=== PATIENT | female | born 1990 | race African-American/Black ===

== ENCOUNTER 2017-03-06 00:39 | Emergency (ER) | payer OTHER ==
[~2017-03-06] VITALS: Ht 172.7 cm; Wt 56.7 kg
--- NOTE | 2017-03-06 00:50 | NUR ---
TO BED 6 A 27 YO FEMALE PT BIBSELF C/O ON AND OFF HEADACHE X 3 WEEKS. PER PATIEN SHE HAS HX OF MIGRAINE. AAOX4, NAD NOTED. VSS. BREATHING EVEN AND UNLABORED. NONDIAPHORETIC. COMFORT MEASURES RENDERED.
[2017-03-06] MEDS ORDERED: METOCLOPRAMIDE HCL 10 MG/2 ML VIAL IV ONE (01:00)
[2017-03-06] MEDS ORDERED: IV NS 0.9% 1,000 ML BAG IV ONE (01:00)
[2017-03-06] MEDS ORDERED: SUMATRIPTAN SUCCINATE 6 MG/0.5 ML VIAL SQ ONE ×2 (01:00→01:04)
[2017-03-06] MEDS ORDERED: METOCLOPRAMIDE HCL 10 MG/2 ML VIAL ONE (01:04)
[2017-03-06] MEDS ORDERED: diphenhydrAMINE HCL 50 MG/ML VIAL ONE (01:21)
[2017-03-06] MEDS ORDERED: diphenhydrAMINE HCL 50 MG/ML VIAL IV ONE (01:30)
--- NOTE | 2017-03-06 01:35 | NUR ---
STARTED A SALINE LOCK ON THE RAC G20.
--- NOTE | 2017-03-06 01:38 | NUR ---
patient to ct.
--- NOTE | 2017-03-06 02:02 | NUR ---
PATIENT REPORTS THAT SHE IS "FEELING BETTER."
--- NOTE | 2017-03-06 03:20 | NUR ---
Patient discharged to friend for transport home in stable condition. Written and verbal after care instructions given. Patient verbalizes understanding of instruction. IV removed. Catheter intact and site benign. Pressure and 4x4 applied to site. No bleeding noted. Pt ambulatory with a steady gait. VSS, NAD noted on DC. Denies complaint on DC.
[2017-03-06 04:00] VITALS: BP 106/68
== END 2017-03-06 04:43 | disposition home or self-care (01) ==
LOC: ER 00:44
DX: G43.909 Migraine, unspecified, not intractable, without status migrainosus (principal)
CPT/HCPCS: 70450-TC; A4606; J1200; J2765; J3030; J7030; Z7610

== ENCOUNTER 2018-11-19 19:07 | Emergency (ER) | payer OTHER ==
[~2018-11-19] VITALS: Ht 172.7 cm; Wt 65.8 kg
--- NOTE | 2018-11-19 19:20 | NUR ---
PT BIBSELF C/O "POSSIBLE SEIZURE" LAST NIGHT, PT SHOWED VIDEO APPROXIMATELY 15 SEC. PT AXO4. RESPIRATIONS EVEN AND UNLABORED. PT HIT HEAD. PT PUT ON THE BROKERAGE CLERK AND PULSE OX.
--- NOTE | 2018-11-19 19:45 | NUR ---
PT AMBULATORY WITH STEADY GAIT, URINE SAMPLE OBTAINED AND SENT TO LAB.
[2018-11-19] MEDS ORDERED: IV NS 0.9% 1,000 ML BAG IV ONE (20:00)
[2018-11-19 21:16] LABS: APPEARANCE,URINE CLEAR (CLEAR); BILIRUBIN,URINE NEGATIVE (NEGATIVE); BLOOD, URINE 1+ Ery/uL (NEGATIVE); COLOR,URINE YELLOW (YELLOW); KETONES,URINE NEGATIVE (NEGATIVE); LEUKOCYTE ESTERASE ,URINE NEGATIVE (NEGATIVE); NITRITE, URINE NEGATIVE (NEGATIVE); PH,URINE 6.5 (5.0-8.0); PROTEIN,URINE NEGATIVE (NEGATIVE); UGLUCOSE NEGATIVE (NEGATIVE); UROBILINOGEN,URINE 0.2 EU/dL (0.2)
[2018-11-19 21:21] LABS: BACTERIA,URINE None seen /HPF (None Seen); SQUAMOUS EPITHELIAL CELL,UR 0-2 /HPF (None Seen); WBC,URINE 0-2 /HPF (0-3)
[2018-11-19 21:24] LABS: CALCIUM, SERUM 9.2 mg/dL (8.5-10.1); CREATININE 1.1 mg/dL (0.6-1.3); POTASSIUM 3.7 mmol/L (3.5-5.1)
[2018-11-19 22:32] VITALS: BP 118/77
--- NOTE | 2018-11-19 22:32 | NUR ---
Patient discharged to home in stable condition. Written and verbal after care instructions given. Patient verbalizes understanding of instruction.
== END 2018-11-19 22:33 | disposition home or self-care (01) ==
LOC: ER 19:07
DX: R55 Syncope and collapse (principal); E86.0 Dehydration; G43.909 Migraine, unspecified, not intractable, without status migrainosus; Z98.890 Other specified postprocedural states; Z60.2 Problems related to living alone
CPT/HCPCS: 36415; 71045; 80048; 81001; 84703; 93005; 99284; J7030; 81000-TC

== ENCOUNTER 2019-02-11 19:02 | Emergency (ER) | payer OTHER ==
[~2019-02-11] VITALS: Ht 172.7 cm; Wt 63.5 kg
[2019-02-11 19:50] VITALS: BP 116/73
== END 2019-02-11 20:14 | disposition home or self-care (01) ==
LOC: ER 19:02
DX: M67.48 Ganglion, other site (principal); Z98.890 Other specified postprocedural states; Z60.2 Problems related to living alone

== ENCOUNTER 2019-08-26 16:08 | Emergency (ER) | payer OTHER ==
[~2019-08-26] VITALS: Ht 172.7 cm; Wt 65.8 kg
--- NOTE | 2019-08-26 16:42 | NUR ---
PT REC'D TO [facility] C/O BLEDING WEDNESDAY HAD BLOD TEST POSS PREG LABS AND UA OBTAINED
--- NOTE | 2019-08-26 16:52 | NUR ---
pt was bleeding on and off 3 days
[2019-08-26 17:07] LABS: BASOPHILS # (AUTO) 0.1 /CMM (0.0-0.2); BASOPHILS % (AUTO) 0.6 % (0.0-2.0); EOSINOPHILS % (AUTO) 1.2 % (0.0-6.0); HEMATOCRIT 44 % (33-45); HEMOGLOBIN 14.4 g/dL (11.5-14.8); LYMPHOCYTES % (AUTO) 21.3 % (20.0-44.0); MEAN CORPUSCULAR HGB CONC 33 g/dl (31.0-36.0); MEAN CORPUSCULAR VOLUME 93 fL (82-100); MONOCYTES # (AUTO) 1.1 /CMM (0.1-1.30); MONOCYTES % (AUTO) 11.5 % (2.0-12.0); NEUTROPHILS # (AUTO) 6.2 /CMM (1.8-8.9); NEUTROPHILS % (AUTO) 65.4 % (43.0-81.0); PLATELET COUNT (AUTO) 375 /CMM (150-450); RED BLOOD CELL COUNT(AUTO) 4.74 MIL/uL (4.0-5.2); WHITE BLOOD COUNT (AUTO) 9.5 K/uL (4.3-11.0)
[2019-08-26 17:25] LABS: ALBUMIN 4.4 g/dL (3.4-5.0); BILIRUBIN,DIRECT 0.1 mg/dL (0.0-0.2); BILIRUBIN,TOTAL 0.8 mg/dL (0.2-1.0); CALCIUM, SERUM 8.9 mg/dL (8.5-10.1); CREATININE 0.8 mg/dL (0.6-1.3); POTASSIUM 3.3 mmol/L (3.5-5.1); TOTAL PROTEIN, SERUM 8.3 g/dL (6.4-8.2)
[2019-08-26 17:27] LABS: BILIRUBIN,URINE Negative (NEGATIVE); BLOOD, URINE Moderate Ery/uL (NEGATIVE); COLOR,URINE Yellow (YELLOW); KETONES,URINE 15 (NEGATIVE); LEUKOCYTE ESTERASE ,URINE Trace (NEGATIVE); NITRITE, URINE Negative (NEGATIVE); PH,URINE 5.5 (5.0-8.0); PROTEIN,URINE Negative (NEGATIVE); UGLUCOSE Negative (NEGATIVE); UROBILINOGEN,URINE 0.2 EU/dL (0.2)
[2019-08-26 17:28] LABS: APPEARANCE,URINE SLIGHTLY HAZY (CLEAR)
[2019-08-26 17:42] LABS: BACTERIA,URINE Many /HPF (None Seen); SQUAMOUS EPITHELIAL CELL,UR Many /HPF (None Seen)
[2019-08-26 17:43] LABS: WBC,URINE 0-2 /HPF (0-3)
--- NOTE | 2019-08-26 17:45 | NUR ---
pt can not receive rhogam
--- NOTE | 2019-08-26 18:26 | NUR ---
Patient discharged to home in stable condition. Written and verbal after care instructions given. Patient verbalizes understanding of instruction.
[2019-08-26 18:29] VITALS: BP 116/68
== END 2019-08-26 18:29 | disposition home or self-care (01) ==
LOC: ER 16:08
DX: O20.8 Other hemorrhage in early pregnancy (principal); Z3A.08 8 weeks gestation of pregnancy; Z98.890 Other specified postprocedural states; Z60.2 Problems related to living alone
CPT/HCPCS: 36415; 76805-TC; 80048-TC; 80076-TC; 81000-TC; 84702-TC; 85025-TC; 85730-TC; 87086-TC